=== PATIENT | female | born 1930 | race Two or more races ===

== ENCOUNTER 2017-01-22 18:59 | Emergency (ER) | payer MEDICARE, OTHER ==
[~2017-01-22] VITALS: Ht 165.1 cm; Wt 63.5 kg
[~2017-01-22 18:59] MED LIST: AMLO5TAB2 PO; CHOL4POW4 PO; HYDR-2650 PO; LOSA100T27 PO; MONT10TA34 OR; OMEP20CA5 OR; SITA50TA28 PO
[2017-01-22 20:31] LABS: Hematocrit 33.4 % (36.0-46.0); Mean Corpuscular Hemoglobin 32.3 pg (28.0-32.0); Mean Corpuscular Hgb Conc. 32.9 g/dL (32.0-36.0); Mean Corpuscular Volume 97.9 fL (80.0-100.0); Mean Platelet Volume 10.7 fL (7.4-10.4); Platelet Count (auto) 68 10^3/uL (140-450); Red Cell Distribution Width 16.7 % (11.6-16.0); SUSPECT VIEW TRANSMISSION; White Blood Cell 6.8 10^3/uL (4.4-10.8)
[2017-01-22 20:35] LABS: Urine Bilirubin Negative (Negative); Urine Blood 1+ /uL (Negative); Urine Color Brown (Yellow); Urine Glucose TRACE mg/dL (Normal); Urine Hyaline Cast MANY /lpf (0 - 2); Urine Ketone Negative (Negative); Urine Mucus MODERATE (None Seen); Urine Nitrite Negative (Negative); Urine RBC 14 /hpf (0 - 4); Urine Squamous Epithelial Cell MOD /hpf (<5); Urine Urobilinogen Normal (Negative); Urine WBC Clumps PRESENT /hpf (None Seen)
[2017-01-22 20:40] LABS: Metamyelocytes % 0; Myelocytes % 0; Promyelocytes % 0; Reactive Lymphocytes 0
[2017-01-22] MEDS ORDERED: ALBUMIN 25% 50 ML IV ONE ×2 (20:45→23:45)
[2017-01-22 20:49] LABS: Lactic Acid w/Reflex 10.2 mmol/L (0.4-2.0)
[2017-01-22 20:50] LABS: REFLEX LACTIC ACID YES OR NO YES
[2017-01-22 20:51] LABS: Albumin 1.4 g/dL (3.4-5.0); BUN/Creatinine Ratio 25.4; Calcium 8.2 mg/dL (8.5-10.1); Magnesium 2.3 mg/dL (1.6-2.6); Potassium 4.7 mmol/L (3.5-5.1)
[2017-01-22 21:14] LABS: INR 1.66 (0.9-1.15); Prothrombin Time 18.2 sec (9.37-12.3)
[2017-01-22] MEDS ORDERED: PIPERACILLIN-TAZOB 2.25GM 50 ML IV ONE (21:15)
[2017-01-22] MEDS ORDERED: SODIUM CHLORIDE 0.9% 1,000 ML IV ONE ×2 (21:15→23:45)
[2017-01-22 21:21] LABS: Platelet Estimate Decreased
[2017-01-22 21:22] LABS: Temperature: 23.1 C (20.0-25.0)
[2017-01-22] MEDS ORDERED: NOREPINEPHRINE BITARTRATE 250 ML IV SCH (21:45)
[2017-01-22] MEDS ORDERED: VANCOMYCIN 1GM/250ML D5W 250 ML IV ONE (22:15)
[2017-01-23] MEDS ORDERED: MORPHINE SULF INJ 2 MG/ML SYRINGE 1ML IM ONE (00:45)
[2017-01-23] MEDS ORDERED: MORPHINE SULF INJ 2 MG/ML SYRINGE 1ML IV ONE (02:30)
[2017-01-23 03:00] VITALS: BP 99/39
[2017-01-23] MEDS ORDERED: MORPHINE SULF INJ 2 MG/ML SYRINGE 1ML IV PRN (03:30)
[2017-01-23] MEDS ORDERED: MORPHINE SULF INJ 2 MG/ML SYRINGE 1ML IM PRN (03:45)
== END 2017-01-23 08:29 | disposition expired ==
LOC: EDBD 18:59 → ER 19:02
DX: A41.9 Sepsis, unspecified organism (principal); R65.21 Severe sepsis with septic shock; E11.9 Type 2 diabetes mellitus without complications; Z79.899 Other long term (current) drug therapy; Z88.8 Allergy status to other drugs, medicaments and biological substances; R41.82 Altered mental status, unspecified; G93.41 Metabolic encephalopathy; J96.00 Acute respiratory failure, unspecified whether with hypoxia or hypercapnia; I11.0 Hypertensive heart disease with heart failure; I50.9 Heart failure, unspecified
CPT/HCPCS: 36415; 51702; 70450; 71010; 74176; 80053; 81001; 82140; 83605; 83690; 83735; 83880; 84484; 85007; 85027; 85610; 87040; 87077; 87186; 93005; 96365; 96366; 96367; 96368; 96372; 96375; 99285; J2270; J2543; J3370; J7030